=== PATIENT | male | born 1980 | race African-American/Black ===

== ENCOUNTER 2024-01-05 08:52 | Emergency (ER) | payer MEDICAID ==
[~2024-01-05] VITALS: Ht 175.3 cm; Wt 84.8 kg
[2024-01-05 08:55] VITALS: BP 146/85; PULSE 60; RESP 18; TEMP 98.9; O2SAT 100
[2024-01-05] MEDS ORDERED: IBUP-2213 PO (09:19)
[2024-01-05] MEDS ORDERED: PRED20TA5 PO (09:19)
[2024-01-05] MEDS ORDERED: ONDA8TAB87 PO (09:19)
[2024-01-05] MEDS: ONDANSETRON 4 MG ODT PO ONE (09:26)
[2024-01-05] MEDS: KETOROLAC 60 MG/2 ML VIAL IM ONE (09:27)
[2024-01-05 10:01] VITALS: BP 146/85; PULSE 60; RESP 18; TEMP 98.9; O2SAT 100
== END 2024-01-05 10:04 | disposition home or self-care (01) ==
LOC: MED 08:52
DX: J02.9 Acute pharyngitis, unspecified (principal); R11.2 Nausea with vomiting, unspecified; F12.90 Cannabis use, unspecified, uncomplicated
CPT/HCPCS: 96372; 99283; J1885; Q0162